=== PATIENT | male | born 1980 | race Caucasian/White ===

== ENCOUNTER 2019-09-12 13:04 | Emergency (ER) | payer BC ==
[2019-09-12] MEDS ORDERED: ONDANSETRON HCL INJ/PF 4 MG/2 ML SDV IV ONE (13:25)
[2019-09-12] MEDS ORDERED: KETOROLAC TROMETHAMINE INJ/PF 30 MG/1 ML SDV IV ONE (13:25)
[2019-09-12] MEDS ORDERED: TAMSULOSIN HCL 0.4 MG CAP.SR.24H PO ONE (13:25)
--- NOTE | 2019-09-12 13:28 | ER Document Report ---
ED Medical Screen (RME) - General Chief Complaint: Flank Pain Stated Complaint: FLANK PAIN Primary Care Provider: LOIS PACHECO MD [Primary Care Provider] - Follow up as needed Notes: HPI: 39-year-old male with history of multiple kidney stones in the past presenting with 3 hours of sudden onset right back and flank pain with nausea vomiting. States he is passing a kidney stone. I have greeted and performed a rapid initial assessment of this patient. A comprehensive ED assessment and evaluation of the patient, analysis of test results and completion of the medical decision making process will be conducted by additional ED providers PHYSICAL EXAMINATION: GENERAL: Uncomfortable-appearing, well-nourished and in moderate acute distress. HEAD: Atraumatic, normocephalic. EYES: sclera anicteric, conjunctiva are normal. ENT: Moist mucous membranes. NECK: Normal range of motion LUNGS: Normal work of breathing, clear to auscultation HEART: 2+ radial pulses bilaterally, mild tachycardia ABD: limited by positioning for exam in triage. Moderate right flank pain on palpation with right CVA tenderness EXTREMITIES: no pitting or edema. No cyanosis. NEUROLOGICAL: No focal neurological deficits. Moves all extremities spontaneo usly and on command. PSYCH: Normal mood, normal affect. SKIN: Warm, diaphoretic, normal turgor, no rashes or lesions noted. TRAVEL OUTSIDE OF THE [place] IN LAST 30 DAYS: No - Related Data Allergies/Adverse Reactions: erythromycin base [Erythromycin Base] Allergy (Verified 03/13/12 18:59) morphine [Morphine] Allergy (Verified 03/13/12 18:59) Hives shrimp Allergy (Verified 09/12/19 13:23) sulfamethoxazole [From Septra] Allergy (Verified 03/13/12 18:59) trimethoprim [From Septra] Allergy (Verified 03/13/12 18:59) Home Medications: Zolpidem, Vyvance, Amlodipine, Atorvastatin Past Medical History Renal/ Medical History: Reports: Hx Kidney Stones Past Surgical History: Reports: Hx Kidney (Renal Surgery) - renal stents Physical Exam - Vital signs Vitals: Temp Pulse Resp BP Pulse Ox 97.4 F 111 H 24 H 90/50 L 100 09/12/19 13:11 09/12/19 13:11 09/12/19 13:11 09/12/19 13:11 09/12/19 13:11 Course - Vital Signs Vital signs: Temp Pulse Resp BP Pulse Ox 97.4 F 111 H 24 H 90/50 L 100 09/12/19 13:11 09/12/19 13:11 09/12/19 13:11 09/12/19 13:11 09/12/19 13:11 Doctor's Discharge - Discharge Referrals: LOIS PACHECO MD [Primary Care Provider] - Follow up as needed
[2019-09-12 13:53] LABS: ABSOLUTE BASOPHILS # (AUTO) 0.1 10^3/uL (0.0-0.2); ABSOLUTE EOSINOPHILS # (AUTO) 0.2 10^3/uL (0.0-0.6); ABSOLUTE LYMPHOCYTES (AUTO) 1.9 10^3/uL (0.5-4.7); ABSOLUTE NEUT (AUTO) 7.8 10^3/uL (1.7-8.2); BASOPHILS % (AUTO) 0.9 % (0-2); EOSINOPHILS % (AUTO) 2.2 % (0-6); HEMATOCRIT 47.7 % (37.9-51.0); HEMOGLOBIN 16.8 g/dL (13.5-17.0); LYMPHOCYTES % (AUTO) 17.5 % (13-45); MEAN CORPUSCULAR HEMOGLOBIN 33.2 pg (27.0-33.4); MEAN CORPUSCULAR HGB CONC 35.3 g/dL (32.0-36.0); MEAN CORPUSCULAR VOLUME 94 fl (80-97); PLATELET COUNT 263 10^3/uL (150-450); RED BLOOD COUNT 5.06 10^6/uL (4.35-5.55); RED CELL DISTRIBUTION WIDTH 13.7 % (11.5-14.0); SEGMENTED NEUTROPHILS % (AUTO) 70.4 % (42-78); TOTAL CELLS COUNTED % (AUTO) 100 %
[2019-09-12 14:06] LABS: APPEARANCE,URINE CLOUDY; BILIRUBIN,URINE NEGATIVE (NEGATIVE); COLOR,URINE AMBER; GLUCOSE, URINE NEGATIVE (NEGATIVE); KETONES,URINE 20 mg/dL (NEGATIVE); LEUKOCYTE ESTERASE,URINE NEGATIVE (NEGATIVE); NITRITE,URINE NEGATIVE (NEGATIVE); PROTEIN,URINE 100 mg/dL (NEGATIVE); URINE SPECIFIC GRAVITY 1.026
[2019-09-12 14:12] LABS: ALBUMIN 4.8 g/dL (3.5-5.0); ALKALINE PHOSPHATASE 74 U/L (38-126); ANION GAP 13 (5-19); ASPARTATE AMINO TRANSFERASE 37 U/L (17-59); BILIRUBIN,DIRECT 0.1 mg/dL (0.0-0.4); BILIRUBIN,TOTAL 1.8 mg/dL (0.2-1.3); BLOOD UREA NITROGEN 27 mg/dL (7-20); CALCIUM 10.6 mg/dL (8.4-10.2); CARBON DIOXIDE 19 mmol/L (22-30); CHLORIDE 111 mmol/L (98-107); GLUCOSE 83 mg/dL (75-110); POTASSIUM 4.4 mmol/L (3.6-5.0); TOTAL PROTEIN 7.4 g/dL (6.3-8.2)
[2019-09-12] MEDS ORDERED: NORMAL SALINE 1000 ML 1,000 ML IV ONE ×2 (14:14→15:20)
[2019-09-12] MEDS ORDERED: HYDROMORPHONE HCL INJ/PF 2 MG/ML AMPULE IV ONE ×2 (14:35→15:09)
--- NOTE | 2019-09-12 15:11 | RADIOLOGY REPORT (SQ) ---
EXAM DESCRIPTION: CT ABD/PELVIS NO ORAL OR IV COMPLETED DATE/TIME: 09/12/2019 2:57 pm REASON FOR STUDY: R flank pain COMPARISON: None. TECHNIQUE: CT scan of the abdomen and pelvis performed without intravenous or oral contrast. Images reviewed with lung, soft tissue, and bone windows. Reconstructed coronal and sagittal MPR images revi ewed. All images stored on PACS. All CT scanners at this facility use dose modulation, iterative reconstruction, and/or weight based d osing when appropriate to reduce radiation dose to as low as reasonably achievable (ALARA). [facility]: Dose Right [facility]: CareDose [facility]: Dose Right [facility]: Teradose 4D [facility]: Smart Acunu RADIATION DOSE: CT Rad equipment meets quality standard of care and radiation dose reduction techniq ues were employed. CTDIvol: 19.2 mGy. DLP: 1138 mGy-cm.mGy. LIMITATIONS: None. FINDINGS: LOWER CHEST: No significant findings. No nodules or infiltrates. NON-CONTRASTED LIVER, SPLEEN, ADRENALS: Evaluation limited by lack of IV contrast. No identified sign ificant masses. PANCREAS: No masses. No peripancreatic inflammatory changes. GALLBLADDER: No identified stones by CT criteria. No inflammatory changes to suggest cholecystitis. RIGHT KIDNEY AND URETER: No suspicious masses. Assessment limited by lack of IV contrast. There is a 6 mm stone within the proximal right ureter with mild associated hydronephrosis. Additional nonobs tructing right renal stones, largest measuring up to 7 mm. LEFT KIDNEY AND URETER: No suspicious masses. Assessment limited by lack of IV contrast. No signifi cant calcifications. No hydronephrosis or hydroureter. AORTA AND RETROPERITONEUM: No aneurysm. No retroperitoneal masses or adenopathy. BOWEL AND PERITONEAL CAVITY: No obvious masses or inflammatory changes. No free fluid. APPENDIX: Normal. PELVIS, BLADDER, AND ABDOMINAL WALL:Unremarkable urinary bladder. No free fluid. No pelvic adenopat hy. Fat containing inguinal hernias with small amount of fluid within the right inguinal hernia. No discrete soft tissue masses. BONES: No significant findings. T11 sclerotic focus, likely bone island. OTHER: No other significant finding. IMPRESSION: 6 mm stone within the proximal right ureter with mild associated hydronephrosis. Additi onal nonobstructing right renal stones, largest measuring 7 mm. COMMENT: Quality ID # [id number]: Final reports with documentation of one or more dose reduction techniques (e.g., Automated exposure control, adjustment of the mA and/or kV according to patient size, use of iterative reconstruction technique) TECHNICAL DOCUMENTATION: JOB ID: [id number] 2010 [employer]- All Rights Reserved Reading location - IP/workstation name: [email or web address]
--- NOTE | 2019-09-12 15:23 | ER Document Report ---
ED GI/ - General Chief Complaint: Flank Pain Stated Complaint: FLANK PAIN Time Seen by Provider: 09/12/19 14:11 Primary Care Provider: CHRISTIANO NAVARRO MD [NO LOCAL MD] - Follow up as needed Mode of Arrival: Ambulatory Information source: Patient Notes: Patient is an otherwise healthy 39-year-old male presenting to the emergency department chief complaint of right flank pain. Patient reports pain started approximately 3 hours prior to arrival. He reports he has a history of kidney stones, states that he is usually able to pass them on his own unless they are 6 mm or greater. Patient states that he has Flomax and ibuprofen at home that he usually takes for symptoms. Patient reports no relief of his pain, he reports associated nausea without vomiting. He denies fever. TRAVEL OUTSIDE OF THE [place] IN LAST 30 DAYS: No - Related Data Allergies/Adverse Reactions: erythromycin base [Erythromycin Base] Allergy (Verified 03/13/12 18:59) morphine [Morphine] Allergy (Verified 03/13/12 18:59) Hives shrimp Allergy (Verified 09/12/19 13:23) sulfamethoxazole [From Septra] Allergy (Verified 03/13/12 18:59) trimethoprim [From Septra] Allergy (Verified 03/13/12 18:59) Home Medications: Zolpidem, Vyvance, Amlodipine, Atorvastatin Past Medical History - General Information source: Patient - Social History Smoking Status: Never Smoker Frequency of alcohol use: None Drug Abuse: None Family History: Reviewed & Not Pertinent Patient has suicidal ideation: No Patient has homicidal ideation: No Renal/ Medical History: Reports: Hx Kidney Stones Past Surgical History: Reports: Hx Kidney (Renal Surgery) - renal stents Review of Systems - Review of Systems Constitutional: No symptoms reported EENT: No symptoms reported Cardiovascular: No symptoms reported Respiratory: No symptoms reported Gastrointestinal: See HPI Genitourinary: See HPI Male Genitourinary: No symptoms reported Musculoskeletal: No symptoms reported Skin: No symptoms reported Hematologic/Lymphatic: No symptoms reported Neurological/Psychological: No symptoms reported -: Yes All other systems reviewed and negative Physical Exam - Vital signs Vitals: Temp Pulse Resp BP Pulse Ox 97.4 F 111 H 24 H 90/50 L 100 09/12/19 13:11 09/12/19 13:11 09/12/19 13:11 09/12/19 13:11 09/12/19 13:11 - Notes Notes: PHYSICAL EXAMINATION: GENERAL: Patient writhing around in the bed in moderate distress. HEAD: Atraumatic, normocephalic. EYES: Pupils equal round and reactive to light, extraocular movements intact, sclera anicteric, conjunctiva are normal. ENT: Nares patent, oropharynx clear without exudates. Moist mucous membranes. NECK: Normal range of motion, supple without lymphadenopathy LUNGS: Breath sounds clear to auscultation bilaterally and equal. No wheezes rales or rhonchi. HEART: Regular rate and rhythm without murmurs ABDOMEN: Soft, nontender, nondistended abdomen. No guarding, no rebound. No masses appreciated. Musculoskeletal: Normal range of motion, no pitting or edema. No cyanosis. NEUROLOGICAL: Cranial nerves grossly intact. Normal speech, normal gait. Normal sensory, motor exams PSYCH: Normal mood, normal affect. SKIN: Warm, Dry, normal turgor, no rashes or lesions noted. Course - Re-evaluation Re-evalutation: Laboratory 09/12/19 09/12/19 09/12/19 13:30 13:30 13:30 WBC 11.0 H RBC 5.06 Hgb 16.8 Hct 47.7 MCV 94 MCH 33.2 MCHC 35.3 RDW 13.7 Plt Count 263 Lymph % (Auto) 17.5 Stearns % (Auto) 9.0 Eos % (Auto) 2.2 Baso % (Auto) 0.9 Absolute Neuts (auto) 7.8 Absolute Lymphs (auto) 1.9 Absolute Monos (auto) 1.0 Absolute Eos (auto) 0.2 Absolute Basos (auto) 0.1 Seg Neutrophils % 70.4 Sodium 142.7 Potassium 4.4 Chloride 111 H Carbon Dioxide 19 L Anion Gap 13 BUN 27 H Creatinine 1.05 Est GFR ( Amer) > 60 Est GFR (MDRD) Non-Af > 60 Glucose 83 Calcium 10.6 H Total Bilirubin 1.8 H Direct Bilirubin 0.1 Neonat Total Bilirubin Not Reportable Neonat Direct Bilirubin Not Reportable Neonat Indirect Bili Not Reportable AST 37 ALT 66 H Alkaline Phosphatase 74 Total Protein 7.4 Albumin 4.8 Urine Color ALBERTO Urine Appearance CLOUDY Urine pH 6.0 Ur Specific Mck[place] 1.026 Urine Protein 100 H Urine Glucose (UA) NEGATIVE Urine Ketones 20 H Urine Blood LARGE H Urine Nitrite NEGATIVE Urine Bilirubin NEGATIVE Urine Urobilinogen 2.0 H Ur Leukocyte Esterase NEGATIVE Urine WBC (Auto) 10 Urine RBC (Auto) >182 Urine Bacteria (Auto) TRACE Urine Mucus (Auto) OCC Urine Yeast (Budding) PRESENT Urine Ascorbic Acid 40 H Abdomen/Pelvis CT 09/12/19 14:35 IMPRESSION: 6 mm stone within the proximal right ureter with mild associated hydronephrosis. Additional nonobstructing right renal stones, largest measuring 7 mm. Labs and radiology as outlined above. Patient does have a 6 mm stone at the proximal right ureter with mild hydronephrosis. Patient was given 2 L of IV fluids, multiple rounds of analgesics and patient was given the option for us to contact urology for possible transfer or patient can follow-up outpatient. Patient would like to be discharged home and he will follow-up outpatient in the office on Sunday. Appropriate medications prescribed. ED return precautions discussed, patient and spouse verbalized understanding and agreement with same. - Vital Signs Vital signs: Temp Pulse Resp BP Pulse Ox 97.9 F 83 24 H 147/123 H 100 09/12/19 15:17 09/12/19 16:24 09/12/19 16:24 09/12/19 16:24 09/12/19 16:24 - Laboratory Result Diagrams: 09/12/19 13:30 09/12/19 13:30 Laboratory results interpreted by me: 09/12/19 09/12/19 09/12/19 13:30 13:30 13:30 WBC 11.0 H Chloride 111 H Carbon Dioxide 19 L BUN 27 H Calcium 10.6 H Total Bilirubin 1.8 H ALT 66 H Urine Protein 100 H Urine Ketones 20 H Urine Blood LARGE H Urine Urobilinogen 2.0 H Urine Ascorbic Acid 40 H Discharge - Discharge Clinical Impression: Kidney stone Condition: Stable Disposition: HOME, SELF-CARE Additional Instructions: Your symptoms should improve over the course of the next one week. If you continue to have pain for greater than one week or your pain is not controlled with the pain medications that you have been sent home with you need to return to the emergency department. Please also return if you develop fever, persistent vomiting, or any other symptoms that are concerning to you. You should take ibuprofen 600 mg every 6 hours and use the oxycodone as prescribed only for pain not controlled by ibuprofen. You are also been sent home with a medication called Flomax to help pass the stone. You've been given Zofran to assist with nausea. Please follow-up with urology in the next 2-3 days. Prescriptions: Oxycodone HCl [Oxy-Ir 5 mg Tablet] 5 mg PO Q4HP PRN #15 tab PRN Reason: Tamsulosin HCl [Flomax] 0.4 mg PO DAILY #7 cap.er.24h Ondansetron [Zofran Odt 4 mg Tablet] 1 - 2 tab PO Q4H PRN #20 tab.rapdis PRN Reason: For Nausea/Vomiting Forms: Return to Work Referrals: CHRISTIANO NAVARRO MD [NO LOCAL MD] - Follow up as needed
[2019-09-12 16:25] VITALS: BP 147/123
== END 2019-09-12 16:53 | disposition home or self-care (01) ==
LOC: ER 13:04
DX: N20.0 Calculus of kidney (principal); R10.9 Unspecified abdominal pain; Z87.442 Personal history of urinary calculi; Z88.3 Allergy status to other anti-infective agents; Z91.013 Allergy to seafood
CPT/HCPCS: 96376; 99284; 96361; 96374; 96375; 36415; 85025; 80053; 81001; 74176; J1885; J1170; J2405; J7030

== ENCOUNTER 2019-12-21 22:38 | Emergency (ER) | payer BC ==
[2019-12-21] MEDS ORDERED: ONDANSETRON HCL INJ/PF 4 MG/2 ML SDV IV ONE (22:48)
[2019-12-21] MEDS ORDERED: HYDROMORPHONE HCL INJ/PF 2 MG/ML AMPULE IV ONE (22:49)
[2019-12-21] MEDS ORDERED: KETAMINE HCL INJ 500 MG/10 ML VIAL IV ONE (23:28)
--- NOTE | 2019-12-21 23:32 | RADIOLOGY REPORT (SQ) ---
EXAM DESCRIPTION: X-ray, single view of the chest and three views of the left ribs CLINICAL HISTORY: 39 years Male, fall, left rib pain COMPARISON: Two views of the chest December 19, 2010 FINDINGS: On the previous examination there was a cavitary nodule in the left upper lobe. This is no longer seen. Mild prominence of the interstitial markings is seen. No focal consolidation. No pneumothorax or pleural effusion. Cardiac and mediastinal silhouette are within normal limits. Oblique views of the left ribs were obtained. No acute displaced rib fractures are noted. IMPRESSION: 1. No pneumothorax or displaced rib fractures. 2. Resolution of left upper lobe cavitary lesion.
[2019-12-21] MEDS ORDERED: NORMAL SALINE 1000 ML 1,000 ML IV ONE (23:34)
[2019-12-22 00:30] LABS: ABSOLUTE BASOPHILS # (AUTO) 0.1 10^3/uL (0.0-0.2); ABSOLUTE EOSINOPHILS # (AUTO) 0.4 10^3/uL (0.0-0.6); ABSOLUTE LYMPHOCYTES (AUTO) 2.2 10^3/uL (0.5-4.7); ABSOLUTE MONOCYTES (AUTO) 0.8 10^3/uL (0.1-1.4); ABSOLUTE NEUT (AUTO) 6.2 10^3/uL (1.7-8.2); BASOPHILS % (AUTO) 0.9 % (0-2); HEMATOCRIT 42.1 % (37.9-51.0); LYMPHOCYTES % (AUTO) 22.4 % (13-45); MEAN CORPUSCULAR HEMOGLOBIN 33.9 pg (27.0-33.4); MEAN CORPUSCULAR HGB CONC 35.6 g/dL (32.0-36.0); MEAN CORPUSCULAR VOLUME 95 fl (80-97); MONOCYTES % (AUTO) 8.6 % (3-13); PLATELET COUNT 201 10^3/uL (150-450); RED BLOOD COUNT 4.42 10^6/uL (4.35-5.55); SEGMENTED NEUTROPHILS % (AUTO) 64.1 % (42-78); TOTAL CELLS COUNTED % (AUTO) 100 %; WHITE BLOOD COUNT 9.7 10^3/uL (4.0-10.5)
[2019-12-22 00:35] LABS: ALBUMIN 4.1 g/dL (3.5-5.0); ALKALINE PHOSPHATASE 80 U/L (38-126); ANION GAP 6 (5-19); ASPARTATE AMINO TRANSFERASE 43 U/L (17-59); BILIRUBIN,DIRECT 0.1 mg/dL (0.0-0.4); BILIRUBIN,TOTAL 0.6 mg/dL (0.2-1.3); BLOOD UREA NITROGEN 16 mg/dL (7-20); CARBON DIOXIDE 22 mmol/L (22-30); CHLORIDE 109 mmol/L (98-107); GLUCOSE 116 mg/dL (75-110); POTASSIUM 3.4 mmol/L (3.6-5.0)
[2019-12-22] MEDS ORDERED: ONDANSETRON HCL INJ/PF 4 MG/2 ML SDV ONE (00:40)
[2019-12-22] MEDS ORDERED: ONDANSETRON HCL INJ/PF 4 MG/2 ML SDV IV ONE (00:46)
--- NOTE | 2019-12-22 02:03 | RADIOLOGY REPORT (SQ) ---
EXAM DESCRIPTION: CT ABDOMEN PELVIS WITH IV CONTRAST COMPLETED DATE/TME: 12/21/2019 23:29 CLINICAL HISTORY: left upper quadrant pain s/p fall COMPARISON: 09/12/2019 TECHNIQUE: CT of the abdomen and pelvis performed following IV administration of 100 mL of Omnipaque 350. FINDINGS: Lung Bases: The visualized lung bases are clear. Bones: Degenerative endplate spondylosis. Abdomen: Liver: The liver has normal size and density. No intrahepatic biliary dilatation. Gallbladder: No calcified gallstones. Spleen, Pancreas, and Adrenal Glands: The spleen, pancreas, and adrenal glands are unremarkable. Kidneys: No hydronephrosis or obstructing calculus. Right nonobstructing nephrolithiasis, the largest measuring 7 mm. Vasculature: The aorta and IVC have normal caliber and position. The portal vein is patent. The proximal visceral and renal arteries are patent. Stomach: The stomach and duodenum have normal course. Other: No free intraperitoneal air. Tiny fat-containing umbilical hernia. No free fluid or lymphadenopathy. Pelvis: Bladder: Mild wall thickening of the urinary bladder. Bowel: No dilated loops of large or small bowel. Appendix: Normal appendix. Pelvis: Prostate is not enlarged. IMPRESSION: 1. Mild wall thickening of the urinary bladder. This could be seen with cystitis. 2. Nonobstructing right nephrolithiasis. This exam was performed according to our departmental dose-optimization program, which includes automated exposure control, adjustment of the mA and/or kV according to patient size and/or use of iterative reconstruction technique.
[2019-12-22] MEDS ORDERED: HYDROCODONE/ACETAMINOPHEN 5-325 MG (6 TAB/ER DISP) PO PRN (02:50)
[2019-12-22 03:00] VITALS: BP 129/59
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
== END 2019-12-22 03:15 | disposition home or self-care (01) ==
LOC: ER 22:38
DX: S20.212A Contusion of left front wall of thorax, initial encounter (principal); S30.1XXA Contusion of abdominal wall, initial encounter; R07.81 Pleurodynia; W19.XXXA Unspecified fall, initial encounter; Y93.89 Activity, other specified; Z88.1 Allergy status to other antibiotic agents; Z88.6 Allergy status to analgesic agent; Z88.5 Allergy status to narcotic agent; Z91.013 Allergy to seafood
CPT/HCPCS: 96376; 99284; 96361; 96374; 96375; 86900; 86901; 36415; 86850; 85025; 80053; 71101; 74177; J3490; J1170; J2405 ×2; J7030

== ENCOUNTER 2020-05-20 02:26 | Emergency (ER) | payer BC ==
[2020-05-20] MEDS ORDERED: DIPHENHYDRAMINE HCL 50 MG/ML VIAL IV ONE (02:42)
[2020-05-20 02:52] LABS: ABSOLUTE BASOPHILS # (AUTO) 0.1 10^3/uL (0.0-0.2); ABSOLUTE EOSINOPHILS # (AUTO) 0.2 10^3/uL (0.0-0.6); ABSOLUTE LYMPHOCYTES (AUTO) 2.3 10^3/uL (0.5-4.7); ABSOLUTE MONOCYTES (AUTO) 1.1 10^3/uL (0.1-1.4); ABSOLUTE NEUT (AUTO) 7.3 10^3/uL (1.7-8.2); BASOPHILS % (AUTO) 0.9 % (0-2); EOSINOPHILS % (AUTO) 1.7 % (0-6); HEMATOCRIT 38.4 % (37.9-51.0); HEMOGLOBIN 13.5 g/dL (13.5-17.0); MEAN CORPUSCULAR HEMOGLOBIN 32.7 pg (27.0-33.4); MEAN CORPUSCULAR HGB CONC 35.2 g/dL (32.0-36.0); MEAN CORPUSCULAR VOLUME 93 fl (80-97); PLATELET COUNT 174 10^3/uL (150-450); RED BLOOD COUNT 4.13 10^6/uL (4.35-5.55); RED CELL DISTRIBUTION WIDTH 13.3 % (11.5-14.0); SEGMENTED NEUTROPHILS % (AUTO) 66.4 % (42-78); TOTAL CELLS COUNTED % (AUTO) 100 %; WHITE BLOOD COUNT 10.9 10^3/uL (4.0-10.5)
--- NOTE | 2020-05-20 03:00 | ER Document Report ---
ED General - General Chief Complaint: Blood Pressure Problem Stated Complaint: BLOOD PRESSURE ISSUES Primary Care Provider: LOIS PACHECO MD [Primary Care Provider] - Follow up as needed TRAVEL OUTSIDE OF THE [place] IN LAST 30 DAYS: No - HPI Notes: Patient is a 39-year-old male who presents to the emergency department for evaluation of difficulty breathing. 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 He went home and started feeling like he could not get a deep breath. He denies any pain. No fevers or chills. Has not been coughing. He has felt dizzy and occasional vertiginous type symptoms, but primarily just feels lightheaded. He states he cannot seem to get comfortable, is moving around constantly in an effort to try and get a deep breath. The patient just recently started BuSpar, this is his second or third day of therapy. - Related Data Allergies/Adverse Reactions: azithromycin Allergy (Verified 05/20/20 03:45) erythromycin base [Erythromycin Base] Allergy (Verified 12/21/19 23:22) morphine [Morphine] Allergy (Verified 12/21/19 23:22) Hives shrimp Allergy (Verified 12/21/19 23:22) sulfamethoxazole [From Septra] Allergy (Verified 12/21/19 23:22) trimethoprim [From Septra] Allergy (Verified 12/21/19 23:22) Past Medical History - General Information source: Patient - Social History Smoking Status: Current Every Day Smoker Frequency of alcohol use: Rare Drug Abuse: None Family History: Reviewed & Not Pertinent - Past Medical History Cardiac Medical History: Reports: Hx Hypercholesterolemia, Hx Hypertension Renal/ Medical History: Reports: Hx Kidney Stones Psychiatric Medical History: Reports: Hx Depression Past Surgical History: Reports: Hx Kidney (Renal Surgery) - renal stents Review of Systems - Review of Systems Constitutional: No symptoms reported EENT: No symptoms reported Cardiovascular: No symptoms reported Respiratory: See HPI Gastrointestinal: No symptoms reported Genitourinary: No symptoms reported Musculoskeletal: No symptoms reported Skin: No symptoms reported Neurological/Psychological: See HPI -: Yes All other systems reviewed and negative Physical Exam - Vital signs Vitals: BP 110/50 L 05/20/20 02:30 - Notes Notes: This is a 39-year-old male who appears his stated age in a moderate amount of distress. He cannot seem to sit still. He intermittently sits up sharply, flexes and extends his legs at the hip and knees, movements consistent with akathisia. Vital signs reviewed, please refer to chart. Head is normocephalic, atraumatic. Pupils equal round, reactive to light. Neck is supple without meningismus. Heart is regular rate and rhythm. Lungs are clear to auscultation bilaterally. Abdomen is soft, nontender, normoactive bowel sounds throughout. Extremities without cyanosis, clubbing. Posterior calves are nontender. P eripheral pulses are equal. Skin is warm and dry. Patient is awake, alert, oriented x3. 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 Strength is plus 5 out of 5 bilateral upper and lower extremities. Sensation is intact. Reflexes symmetrical. Intact [id number], rapid alternating movements, [id number]. Course - Re-evaluation Re-evalutation: 05/20/20 02:59 Patient presents to the emergency department for evaluation. He has intermittent gasping for air, appearing as if he is having difficulty breathing, but his movements are most consistent with akathisia. He just started BuSpar. He is oxygenating 100% on room air with only intermittent tachypnea. Patient will be treated with Benadryl. Laboratory investigations ordered. Patient is currently stable, we will continue to monitor. 05/20/20 05:33 Patient had a little in the way of improvement with his movements after Benadryl. He received Cogentin and symptoms improved. His respiratory rate improved as well, but was intermittently elevated. He did have some hypoxic episodes here, was found to be snoring and sleeping, he likely has some component of sleep apnea. The patient was notified of this. Given his mild ongoing tachypnea intermittently, decision was made to perform CT angiogram. This is been ordered. Assuming it is negative, patient will be sent home with instructions on akathisia, dyspnea. He is instructed to discontinue his BuSpar. He is to follow-up with his primary care provider today or tomorrow. He will return to the ED with worsening. - Vital Signs Vital signs: Temp Pulse Resp BP Pulse Ox 18 104/52 L 100 05/20/20 04:00 05/20/20 04:06 05/20/20 04:00 - Laboratory Result Diagrams: 05/20/20 02:41 05/20/20 02:41 Laboratory results interpreted by me: 05/20/20 05/20/20 05/20/20 02:41 02:41 02:41 WBC 10.9 H RBC 4.13 L VBG pH 7.62 H VBG pCO2 19.3 L* VBG HCO3 19.4 L Potassium 3.1 L Carbon Dioxide 19 L BUN 25 H Creatinine 1.40 H Est GFR (MDRD) Non-Af 57 L Total Bilirubin 1.6 H Total Protein 5.8 L - Diagnostic Test Radiology reviewed: Reports reviewed Radiology results interpreted by me: 05/20/20 05:34 Chest X-Ray 05/20/20 02:42 IMPRESSION: Clear lungs. - EKG Interpretation by Me Additional EKG results interpreted by me: 05/20/20 03:00 Sinus tachycardia with a rate of 103 bpm. Mild left axis deviation. Borderline prolonged QT interval. Nonspecific ST changes, but no acute changes concerning for ischemia or infarction. No old studies immediately available for comparison. Discharge - Discharge Clinical Impression: Hypokalemia, Drug induced akathisia, Hyperventilation Dyspnea Qualifiers: Dyspnea type: shortness of breath Qualified Code(s): R06.02 - Shortness of breath Condition: Stable Disposition: HOME, SELF-CARE Instructions: Dyspnea, Nonspecific ([facility]) Additional Instructions: I suspect your reaction may be from starting the BuSpar. Please discontinue this medication. Follow-up with your primary care provider in 1 to 2 days. Return to the emergency department for worsening or new concerning symptoms of any sort. Referrals: LOIS PACHECO MD [Primary Care Provider] - Follow up as needed
[2020-05-20 03:02] LABS: ALBUMIN 3.6 g/dL (3.5-5.0); ALKALINE PHOSPHATASE 74 U/L (38-126); ANION GAP 12 (5-19); ASPARTATE AMINO TRANSFERASE 21 U/L (17-59); BILIRUBIN,DIRECT 0.1 mg/dL (0.0-0.4); BILIRUBIN,TOTAL 1.6 mg/dL (0.2-1.3); BLOOD UREA NITROGEN 25 mg/dL (7-20); CALCIUM 9.6 mg/dL (8.4-10.2); CARBON DIOXIDE 19 mmol/L (22-30); CHLORIDE 107 mmol/L (98-107); GLUCOSE 95 mg/dL (75-110); POTASSIUM 3.1 mmol/L (3.6-5.0); TOTAL PROTEIN 5.8 g/dL (6.3-8.2)
[2020-05-20 03:03] LABS: VENOUS BLOOD BASE EXCESS 0.7 mmol/L; VENOUS BLOOD HCO3 19.4 mmol/L (20-32); VENOUS BLOOD PH 7.62 (7.30-7.42)
[2020-05-20 03:05] LABS: VENOUS BLOOD PCO2 19.3 mmHg (35-63)
[2020-05-20] MEDS ORDERED: BENZTROPINE MESYLATE INJ 2 MG/2 ML AMPULE IV ONE (03:11)
[2020-05-20] MEDS ORDERED: NORMAL SALINE 1000 ML 1,000 ML IV ONE (03:13)
[2020-05-20] MEDS ORDERED: POTASSIUM CHLORIDE 10 MEQ TABLET.ER PO ONE (03:13)
--- NOTE | 2020-05-20 04:16 | RADIOLOGY REPORT (SQ) ---
CLINICAL HISTORY: dyspnea COMPARISON: 12/21/2019. 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 Lungs are clear without consolidation, atelectasis, mass or edema. There is no pleural effusion. There is no pneumothorax. There are no acute osseous findings. IMPRESSION: Clear lungs.
--- NOTE | 2020-05-20 06:54 | RADIOLOGY REPORT (SQ) ---
EXAM DESCRIPTION: CT CHEST ANGIOGRAPHY WITHOUT THEN WITH IV CONTRAST COMPLETED DATE/TME: 05/20/2020 06:39 CLINICAL HISTORY: dyspnea, COMPARISON: None Available. TECHNIQUE: CTA of the chest obtained following the uncomplicated intravenous administration of 75 mL Omnipaque 350. 3-D/MIP reformatted images of the chest available for evaluation. FINDINGS: Chest: Pulmonary arteries: Contrast bolus is adequate.No filling defects identified in the pulmonary arteries to suggest pulmonary embolus. Respiratory motion artifact. Thyroid:No abnormalities of the visualized thyroid. Great Vessels:Great vessels have normal anatomic configuration. Thoracic Aorta:No abnormalities of the thoracic aorta identified. Heart:No cardiomegaly, significant pericardial effusion, or coronary artery atherosclerosis Lymph Nodes:No enlarged mediastinal lymph nodes identified. Esophagus:No abnormalities of the esophagus identified. Other:No additional findings. Lungs:No airspace opacities identified. Pleura:No pleural effusion or pneumothorax. Trachea/Airways:No abnormalities of the visualized trachea or airways. Bones: Minimal degenerative endplate spondylosis. Upper Abdomen:Limited images of the upper abdomen demonstrate no definite abnormalities of visualized portions of the liver, gallbladder, pancreas, spleen, adrenal glands, or left kidney. Punctate nonobstructing right nephrolithiasis. IMPRESSION: 1. No pulmonary embolus. 2. Punctate nonobstructing right nephrolithiasis This exam was performed according to our departmental dose-optimization program, which includes automated exposure control, adjustment of the mA and/or kV according to patient size and/or use of iterative reconstruction technique.
[2020-05-20 08:40] VITALS: BP 120/62
[2020-05-20 09:03] LABS: ARTERIAL BLOOD BASE EXCESS -1.5 mmol/L; ARTERIAL BLOOD H2CO3 0.43 mmol/L (1.05-1.35); ARTERIAL BLOOD HCO3 15.8 mmol/L (20-24); ARTERIAL BLOOD O2 SATURATION 99.3 % (94-98); ARTERIAL BLOOD PO2 138.6 mmHg (80-100); ARTERIAL BLOOD TOTAL CO2 16.3 mmol/L (23-27)
[2020-05-20 09:05] LABS: ARTERIAL BLOOD PH 7.66 (7.35-7.45)
[2020-05-20 09:06] LABS: ARTERIAL BLOOD PCO2 14.4 mmHg (35-45)
[2020-05-20 09:46] LABS: ARTERIAL BLOOD FIO2 ROOM AIR
--- NOTE | 2020-05-20 10:09 | ER Document Report ---
Doctor's Note Notes: 05/20/20 10:08 Results of CTA and ABG reviewed by this MD. Results of ED MSE, diagnosis, reminder to discontinue BuSpar, reminder to follow-up with PCP today all discussed with patient prior to discharge. Patient was sleeping when this MD went into the room. Patient was awoken with verbal stimuli and was subsequently alert. Patient's O2 sats are 100% on room air. All questions were answered prior to discharge. Emergency signs and symptoms, reasons to return to the emergency department discussed with patient.
--- NOTE | 2020-05-21 00:37 | EKG REPORT ---
SEVERITY:- ABNORMAL ECG - SINUS TACHYCARDIA BORDERLINE LEFT AXIS DEVIATION NONSPECIFIC T ABNORMALITIES, DIFFUSE LEADS BORDERLINE PROLONGED QT INTERVAL : Confirmed by: Cesar Rincon 21-May-2020 00:36:16
--- OUTSIDE RECORDS SUMMARY | 2020-05-21 14:50 | XMS REPORT ---
:1980 Author [facility] [place] [facility] [place] [address] [place] [id number] Care Team Providers Name Role Phone JONO Meg Primary Care Physician Unavailable MD Abbe Dey Attending Clinician Unavailable MD Abbe Dey Attending Clinician Unavailable MD Abbe Dey Admitting Clinician Unavailable Allergies, Adverse Reactions, Alerts This patient has no known allergies or adverse reactions. Medications This patient has no known medications. Problems This patient has no known problems. Procedures This patient has no known procedures. Results This patient has no known results. Encounters Start End Encounter Admission Attending Care Care Encounter Date/Time Date/Time Type Type Clinicians Facility Department ID 2019-09-15 2019-09-15 E 1 Raúl Dey [facility] [id number] 10:29:34 16:48:00 Raúl Dey Payers Payer Name Policy Type Policy Number Effective Date Expiration D ate Social History This patient has no known social history. Vital Signs This patient has no known vital signs.
== END 2020-05-20 11:20 | disposition home or self-care (01) ==
LOC: ER 02:26
DX: G25.71 Drug induced akathisia (principal); T43.595A Adverse effect of other antipsychotics and neuroleptics, initial encounter; E87.6 Hypokalemia; R06.02 Shortness of breath; R06.4 Hyperventilation; M47.9 Spondylosis, unspecified; R42 Dizziness and giddiness; R00.0 Tachycardia, unspecified; F17.200 Nicotine dependence, unspecified, uncomplicated; I10 Essential (primary) hypertension; Z88.1 Allergy status to other antibiotic agents; Z88.6 Allergy status to analgesic agent; Z88.5 Allergy status to narcotic agent; Z91.013 Allergy to seafood
CPT/HCPCS: 93005; 99285; 96361; 96374; 96375; 36415; 82803 ×2; 83735; 85025; 80053; 84484; 71045; 71275; 93010; 36600; J0515; J1200; J7030